=== PATIENT | female | born 1950 | race Caucasian/White ===

== ENCOUNTER 2023-09-29 17:03 | Emergency (ER) | payer MEDICARE, OTHER, SELFPAY ==
[2023-09-29 17:03] VITALS: BMI 27.1
[2023-09-29 17:11] VITALS: BP 169/92
[2023-09-29 17:51] LABS: % Basophils 0.8 % (0-2); % Eosinophils 2.3 % (0-6); % Immature Granulocytes 0.2 % (0-0.5); % Lymphocytes 16.5 % (20.5-51.1); % Monocytes 8.3 % (1.7-9.3); % Neutrophils 71.9 % (42.2-75.2); Absolute Basophils 0.1 10^3/uL (0-0.2); Absolute Eosinophils 0.2 10^3/uL (0-0.7); Absolute Lymphocytes 1.7 10^3/uL (1.2-3.4); Absolute Monocytes 0.8 10^3/uL (0.1-0.6); Absolute Neutrophils 7.3 10^3/uL (1.4-6.5); Hematocrit 42.9 % (37.0-47.0); Hemoglobin 14.6 g/dL (12.0-16.0); Mean Corpuscular Hgb 30.1 pg (27.0-31.0); Mean Corpuscular Volume 88.5 fL (81.0-99.0); Mean Platelet Volume 11.6 fL (7.4-10.4); Nucleated Red Blood Cells % 0 %; Platelet Count 291 10^3/uL (130-400); Red Blood Cell Count 4.85 10^6/uL (4.20-5.40); Red Cell Dist. Width 12.4 % (11.5-14.5); White Blood Cell Count 10.1 10^3/uL (4.8-10.8)
[2023-09-29 18:02] LABS: ALT (SGPT) 17 U/L (0-35); AST (SGOT) 22 U/L (14-36); Albumin 4.1 g/dl (3.5-5.0); Alkaline Phosphatase 102 U/L (38-126); Blood Urea Nitrogen 9 mg/dl (7-17); Calcium 9.7 mg/dl (8.4-10.2); Carbon Dioxide 26 mmol/L (22-30); Chloride 104 mmol/L (98-107); Glucose 107 mg/dl (70-99); Lipase 53 U/L (23-300); Potassium 3.9 mmol/L (3.5-5.1); Sodium 136 mmol/L (135-145); eGFR > 60.00
[2023-09-29 18:44] VITALS: BP 171/88
[2023-09-29 19:00] VITALS: BP 151/72
--- NOTE | 2023-09-29 19:28 | ED.GENMED ---
History of Present Illness
General
Chief Complaint: Abdominal Symptoms
Source: patient
Exam Limitations: none
Time Seen by Provider: 09/29/23 19:07
Nursing documentation reviewed up to this point in time: agreed with
Travel History
Have you had any contact with someone who has COVID-19?: No
Do you have any symptoms of coronavirus? Fever > 100 degrees, chills, cough, shortness of breath, sore throat, loss of taste or smell, muscle aches, or headache?: No
History of Present Illness
History of Present Illness:
73-year-old female left lower abdominal pain for 2 days had a colonoscopy a few days ago by Dr. Tovar showed diverticulosis she has polyps removed, no fevers mild nausea vomiting no dysuria frequency moving her bowels okay she has had a tube
ligation 41 years ago has had diverticulitis previously saw her PCP was referred to the ER for evaluation
Past History
Past History
ED Past Medical History: Other (Diverticulosis)
ED Past Surgical History: Gynecological
Social History
Tobacco: Non-smoker
Alcohol: None
Drug: None
Living: with family
Employment: Retired
Review of Systems
Review of Systems
All Other Systems: Not applicable
Constitutional: Reports fatigue; Denies fever
EENT: Reports no symptoms
Respiratory: Reports no symptoms
Cardiac: Reports no symptoms
ABD/GI: Reports abdominal pain and nausea; Denies vomiting, diarrhea or bloody stools
: Reports no symptoms
Musculoskeletal: Reports no symptoms
Phy Exam
Physical Exam
Physical Exam:
Physical Exam
General: no apparent distress, not acutely ill
Neck: No jaundice
Heart: s1/s2 regular rate and rhythm, no murmur. equal radial pulses.
Lungs: no acute respiratory distress. clear bilaterally
Abdomen: Soft tender in the left low abdomen
Neuro: alert and oriented. no focal neurological deficits
Skin: no rash
Psychiatric: well kept. interactive and cooperative
Extremities: no edema.
Course
Orders/Labs/Results
Orders:
Orders
09/29/23 17:32
Complete Blood Count/With Diff Urgent
Comprehensive Metabolic Panel Urgent
Lipase Urgent
09/29/23 19:27
CT Abd/Pel (IV only)-[facility] only Urgent
Comment:
Reason For Exam: ll pian
09/29/23 23:04
Amoxicillin 875 mg/Clav 125 mg [Augmentin 875 mg/125 mg] 1 tablet PO NOW STA
Abnormal Lab Results
09/29/23
17:32
MPV 11.6 H fL
(7.4-10.4)
Absolute Neuts (auto) 7.3 H 10^3/uL
(1.4-6.5)
Absolute Monos (auto) 0.8 H 10^3/uL
(0.1-0.6)
Lymphocytes % 16.5 L %
(20.5-51.1)
Glucose 107 H mg/dl
(70-99)
09/29/23 17:32
09/29/23 17:32
Vital Signs
Initial and Last Documented VS:
Initial Vital Signs
Temp Pulse Resp BP Pulse Ox
98.0 F 90 16 169/92 98
09/29/23 17:11 09/29/23 17:11 09/29/23 17:11 09/29/23 17:11 09/29/23 17:11
Last Documented Vital Signs
Temp Pulse Resp BP Pulse Ox
98.0 F 90 16 138/62 98
09/29/23 17:11 09/29/23 17:11 09/29/23 17:11 09/29/23 21:00 09/29/23 21:30
MDM/Problems Addressed
Differential Diagnosis Includes:
Diverticulitis colitis bowel obstruction urinary tract pathology doubt appendicitis or biliary colic
MDM/Problems Addressed:
Left lower abdominal
Chronic conditions affecting care:
Diverticular
Acute Exacerbation and/or Progression of Chronic Illness:
Diverticulosis
*Radiology
Radiology exam reviewed: preliminary read by ED provider
*Pulse Oximetry
Patient hypoxic: no
*Critical Care Note
Total Time (30-74mins, 75-104mins- exclusive of procedures): Not Applicable
Data Reviewed
Review of Other/Old Records Reveals: Other (Colonoscopy report)
Source: patient and records
Update Note
Update Note:
Update [address] noted patient comfortable requiring no narcotic pain meds she like to hold tells me she did not tolerate Cipro previously gave her some nausea or diarrhea today reviewed, will start Augmentin
Follow-up with her PCP ER if worsening symptoms
ED Attending Note
-
Portions of this chart may have been created with voice recognition software.� Occasional wrong word or��sound alike� substitutions may have occurred due to the inherent limitations of voice recognition software.
Discharge Plan
Departure
Patient Disposition: Home (Routine Discharge)
Date of Disposition: 09/29/23
Time of Disposition: 23:05
Patient with high blood pressure during this ER visit?: No
Condition: Good
Covid-19: Not Applicable
Discharge Problem:
Diverticulitis
Instructions: [place] Diet, Diverticulitis
Prescriptions:
New
amoxicillin-pot clavulanate 875-125 mg tablet
1 tab PO Q12H Qty: 20 0RF
ondansetron 4 mg tablet,disintegrating
4 mg PO TIDPRN PRN (Reason: nausea/vomiting) Qty: 10 0RF
Referrals:
NONE,* [Active] -
Activity Restrictions/Additional Instructions:
Drink plenty of fluids Tylenol or ibuprofen for pain antibiotics as prescribed follow-up with your family doctor, return to the ER if worsening symptoms
Interventions
Interventions:
ED- Fall Risk Assessment Last Done: 09/29/23 18:47
*ED COVID-19 Vaccine History Last Done: 09/29/23 17:11
TP-Oqlnbk-Psnwumlhzc Assessment Last Done: 09/29/23 18:47
[2023-09-29 20:00] VITALS: BP 147/61
[2023-09-29 21:00] VITALS: BP 138/62
[2023-09-29] MEDS: AUGMENTIN 875 MG/125 MG 1 TABLET PO (23:12)
== END 2023-09-29 23:22 | disposition home or self-care (01) ==
LOC: EMR 17:03
PROVIDERS: Emergency Medicine; EMERGENCY PHYSICIAN Emergency Medicine; FAMILY PHYSICIAN Internal Medicine
DX: K57.32 Diverticulitis of large intestine without perforation or abscess without bleeding (principal); R11.0 Nausea; Z88.5 Allergy status to narcotic agent
CPT/HCPCS: 99285; 74177; 80053; 83690; 85025; Q9967

== ENCOUNTER → 2024-09-27 07:41 | Outpatient (REF) | payer MEDICARE, OTHER, SELFPAY | LOC: HWWDC 07:41 | PROVIDERS: ATTENDING PHYSICIAN Internal Medicine | DX: M81.0 Age-related osteoporosis without current pathological fracture (principal); Z12.31 Encounter for screening mammogram for malignant neoplasm of breast | CPT/HCPCS: 77063; 77067; 77080 ==

== ENCOUNTER → 2025-03-21 10:51 | Outpatient (REF) | payer MEDICARE, OTHER, SELFPAY ==
[2025-03-21 12:47] LABS: Hematocrit 39.4 % (37.0-47.0); Hemoglobin 12.8 g/dL (12.0-16.0); Mean Corp Hgb Conc. 32.5 g/dL (33.0-37.0); Mean Corpuscular Volume 89.1 fL (81.0-99.0); Nucleated Red Blood Cells % 0 %; Platelet Count 443 10^3/uL (130-400); Red Cell Dist. Width 12.0 % (11.5-14.5)
[2025-03-21 13:11] LABS: ALT (SGPT) 16 U/L (0-35); AST (SGOT) 20 U/L (14-36); Albumin 3.9 g/dl (3.5-5.0); Alkaline Phosphatase 81 U/L (38-126); Blood Urea Nitrogen 14 mg/dl (7-17); Calcium 9.8 mg/dl (8.4-10.2); Carbon Dioxide 26 mmol/L (22-30); Chloride 106 mmol/L (98-107); Glucose 97 mg/dl (70-99); Potassium 4.2 mmol/L (3.5-5.1); Sodium 139 mmol/L (135-145); Total Protein 7.1 g/dl (6.3-8.2); eGFR > 60.00
[2025-03-21 13:18] LABS: C-Reactive Protein 41.00 mg/L (0.0-10.00)
[2025-03-24 12:46] LABS: Lyme Antibody Screen, EIA Negative (Negative)
== END ==
LOC: HWRAD 10:51
PROVIDERS: ATTENDING PHYSICIAN Nurse Practitioner Family
DX: R05.9 Cough, unspecified (principal); M79.10 Myalgia, unspecified site
CPT/HCPCS: 36415; 71046; 80053; 84439; 84443; 85025; 85652; 86140; 86618

== ENCOUNTER → 2025-03-28 09:21 | Outpatient (REF) | payer MEDICARE, OTHER, SELFPAY | LOC: HWLAB 09:21 | PROVIDERS: ATTENDING PHYSICIAN Nurse Practitioner Family; FAMILY PHYSICIAN Internal Medicine | DX: M79.10 Myalgia, unspecified site (principal) | CPT/HCPCS: 36415; 86747 ==

== ENCOUNTER → 2025-04-01 16:07 | Outpatient (REF) | payer MEDICARE, OTHER, SELFPAY | LOC: HWRAD 16:07 | PROVIDERS: ATTENDING PHYSICIAN Nurse Practitioner Family; FAMILY PHYSICIAN Internal Medicine | DX: M54.2 Cervicalgia (principal) | CPT/HCPCS: 72050 ==